=== PATIENT | male | born 1980 | race Caucasian/White ===

== ENCOUNTER 2017-01-21 12:19 | Emergency (ER) | payer OTHER ==
[~2017-01-21] VITALS: Ht 177.8 cm; Wt 118.0 kg
[2017-01-21 12:20] VITALS: BP 196/109; PULSE 95; RESP 20; TEMP 98.2; O2SAT 99
[2017-01-21 12:29] VITALS: BP 152/83
[2017-01-21] MEDS ORDERED: LISI40TA PO (13:00)
[2017-01-21] MEDS ORDERED: NAPR500 PO (13:00)
[2017-01-21] MEDS ORDERED: AMLO5TAB2 PO (13:00)
[2017-01-21] MEDS ORDERED: HYDR25TA5 PO (13:00)
[2017-01-21] MEDS ORDERED: CLON.5 PO (13:00)
[2017-01-21] MEDS ORDERED: PERI0.126 SWISH-SPIT (13:28)
[2017-01-21] MEDS ORDERED: IBUP800T23 PO (13:28)
[2017-01-21] MEDS ORDERED: AMOX500C PO (13:28)
--- NOTE | 2017-01-21 13:29 | PD ---
HPI Chief Complaint: Oral / Dental Pain or Problem Time Seen by Provider: 13:26 Travel History International Travel<30 days: No Contact w/Intl Traveler<30days: No Traveled to known affect area: No History of Present Illness HPI 36-year-old male presents emergency Department with complaint of left upper tooth pain after it cracked yesterday. He says he jumped down from a scaffold and when he landed his teeth clenched together and his tooth cracked. Denies fever, vomiting. Denies sore throat or difficulty swallowing. Has been taking naproxen for symptom management. Symptoms are moderate in severity. Has no other medical complaints. No known allergies. No other modifying factors or associated signs and symptoms. PFSH Social History Tobacco Use: No Allergies-Medications (Allergen,Severity, Reaction): Coded Allergies: No Known Allergies (Verified Allergy, Unknown, 01/21/17) Reported Meds & Prescriptions Reported Meds & Active Scripts Active Peridex Liq (Chlorhexidine Gluconate (Mouth) Liq) 0.12% Soln 15 Ml SWISH-SPIT BID 10 Days Amoxicillin 500 Mg Cap 500 Mg PO BID 10 Days Ibuprofen 800 Mg Tab 800 Mg PO Q6HR PRN Reported Amlodipine (Amlodipine Besylate) 5 Mg Tab 5 Mg PO HS Naprosyn (Naproxen) 500 Mg Tab 500 Mg PO BID Lisinopril 40 Mg Tab 40 Mg PO HS Hydrochlorothiazide 25 Mg Tab 25 Mg PO DAILY Klonopin (Clonazepam) 0.5 Mg Tab 0.5 Mg PO BID Review of Systems Except as stated in HPI: all other systems reviewed are Neg Physical Exam Narrative GENERAL: Well-nourished, well-developed male patient, in no acute distress; afebrile, nontoxic-appearing SKIN: Warm and dry. HEAD: Atraumatic. Normocephalic. No facial edema, erythema, tenderness on palpation. No lymphadenopathy. No clicking on palpation of TMJ. Patient is able to open and close jaw without complication. EYES: Pupils equal and round. No scleral icterus. No injection or drainage. ENT: Mucosa pink and moist. No erythema or exudates. No uvular edema. No uvular , palatal, or tonsillar deviation. Airway patent. EARS: Bilateral pinnae and external canals appear within normal limits. Bilateral tympanic membranes without erythema, dullness or perforation. MOUTH: Mucous membranes moist, no lesions, tongue and gums appear normal. Tooth #16 with tenderness on palpation and is cracked. Surrounding gingiva is without erythema, edema, drainage. No obvious abscess noted. NECK: Trachea midline. No lymphadenopathy. CARDIOVASCULAR: Regular rate. RESPIRATORY: No accessory muscle use. GASTROINTESTINAL: Obese. MUSCULOSKELETAL: No obvious deformities. No clubbing. No cyanosis. No edema. NEUROLOGICAL: Awake and alert. Oriented 3. No obvious cranial nerve deficits. Motor grossly within normal limits. Normal speech. PSYCHIATRIC: Appropriate mood and affect; insight and judgment normal. Data Data Last Documented VS Vital Signs Date Time Temp Pulse Resp B/P (MAP) Pulse Ox O2 Delivery O2 Flow Rate FiO2 01/21/17 12:29 152/83 (106) 01/21/17 12:20 98.2 95 20 99 Room Air Orders Orders Ketorolac Inj (Toradol Inj) (01/21/17 13:30) [facility] Medical Decision Making Medical Screen Exam Complete: Yes Emergency Medical Condition: Yes Medical Record Reviewed: Yes Differential Diagnosis Tooth pain, cracked tooth, dental trauma Narrative Course 36-year-old male physical exam consistent with tooth pain and a cracked tooth # 16. No facial edema or erythema. Patient is afebrile and nontoxic-appearing. I Do not suspect jaw fracture and feel that Imaging is not necessary at this time. Patient provided emergency dental information sheet. Toradol administered in the ER. Amoxicillin, ibuprofen, Peridex mouth rinse prescribed for home. Instructed patient to follow up with dentist. Instructed patient to follow up with primary care provider. Patient verbalizes understanding and agreement with treatment plan. Patient is medically cleared and stable for discharge. Discussed reasons to return to the emergency department. Patient agrees with treatment plan. The patients vital signs are stable and the patient is stable for outpatient follow-up and treatment. Patient discharged home, stable and in no acute distress. Diagnosis Primary Impression: Tooth pain Additional Impression: Cracked tooth Referrals: Dentist Primary Care Physician Patient Instructions: Acute Dental Trauma (ED), General Instructions Additional Instructions: Complete full course of antibiotics Ibuprofen or Tylenol as directed and as needed to reduce pain and inflammation Use Peridex as directed for oral hygiene Warm or cool compresses to the affected area Follow-up with dentist Follow-up with primary care provider Return to emergency department immediately with worsening of symptoms Med/Other Pt SpecificInfo: Prescription(s) given Scripts Chlorhexidine Gluconate (Mouth) Liq (Peridex Liq) 0.12% Soln 15 ML SWISH-SPIT BID for 10 Days, #300 ML 0 Refills Prov: Fariba Jones 01/21/17 Amoxicillin (Amoxicillin) 500 Mg Cap 500 MG PO BID for Infection for 10 Days, #20 CAP 0 Refills Prov: Fariba Jones 01/21/17 Ibuprofen (Ibuprofen) 800 Mg Tab 800 MG PO Q6HR Y for PAIN, #30 TAB 0 Refills Prov: Fariba Jones 01/21/17 Disposition: 01 DISCHARGE HOME Condition: Stable Fariba Jones Jan 21, 2017 13:29
[2017-01-21] MEDS ORDERED: KETOROLAC TROMETHAMINE 60 MG/2 ML (IM) VIAL IM ONE (13:30)
== END 2017-01-21 13:54 | disposition home or self-care (01) ==
LOC: NEPK 12:19
DX: K08.89 Other specified disorders of teeth and supporting structures (principal); K03.81 Cracked tooth
CPT/HCPCS: 96372; 99284; J1885